=== PATIENT | female | born 1945 | race African-American/Black ===

== ENCOUNTER 2017-08-29 01:33 | Inpatient (IN) | payer MEDICARE, OTHER ==
[~2017-08-29] VITALS: Ht 182.9 cm; Wt 68.0 kg
[~2017-08-29 01:33] MED LIST: AMLO10TA4 PO; ASPI-1152 PO; ASPI-1169 PO; DONE10TA11 PO; GABA100C PO; HYDR-548 PO; LEVO500T75 PO; LISI-659 PO; LORA-258 PO; MEMA10TA PO; METO25TA20 GT; NIFE60TA2 PO; OLAN5TAB3 PO; OMEP20TA20 PO; ZOLP5TAB2 PO
--- NOTE | 2017-08-29 01:45 | NUR ---
TO BED 2 A 72 YO FEMALE PATIENT BB [id number] FROM [facility] "PMD REQUEST EVAL FOR CP X8 HOURS AGO." UPON ARRIVAL TO ER, PATIENT DENIES CP. NO SOB. VSS. NAD NOTED. SKIN WARM AND DRY. PLACED ON CARDIAC AND VS MONITORING. COMFORT MEASURES RENDERED.
[2017-08-29] MEDS ORDERED: ASPIRIN 325 MG TABLET ONE (01:54)
[2017-08-29] MEDS ORDERED: ASPIRIN 325 MG TABLET PO ONE (02:00)
--- NOTE | 2017-08-29 02:26 | NUR ---
XR AT BEDSIDE.
[2017-08-29 02:58] LABS: BASOPHILS % (AUTO) 0.1 % (0.0-2.0); EOSINOPHILS # (AUTO) 0.1 /CMM (0.0-0.7); EOSINOPHILS % (AUTO) 1.9 % (0.0-6.0); HEMATOCRIT 37 % (33-45); HEMOGLOBIN 12.1 g/dL (11.5-14.8); LYMPHOCYTES # (AUTO) 1.5 /CMM (0.8-4.8); MEAN CORPUSCULAR HEMOGLOBIN 31 PG (26.0-33.0); MEAN CORPUSCULAR HGB CONC 33 g/dl (31.0-36.0); MEAN CORPUSCULAR VOLUME 94 fL (82-100); MONOCYTES # (AUTO) 0.4 /CMM (0.1-1.30); MONOCYTES % (AUTO) 5.1 % (2.0-12.0); NEUTROPHILS # (AUTO) 5.4 /CMM (1.8-8.9); NEUTROPHILS % (AUTO) 72.9 % (43.0-81.0); PLATELET COUNT (AUTO) 160 /CMM (150-450); RDW COEFFICIENT OF VARIATION 14.1 (11.5-15.0); RED BLOOD CELL COUNT(AUTO) 3.92 MIL/uL (4.0-5.2); WHITE BLOOD COUNT (AUTO) 7.5 K/uL (4.3-11.0)
[2017-08-29 03:13] LABS: INR 0.96 (0.87-1.13)
[2017-08-29 03:16] LABS: TROPONIN I < 0.017 ng/mL (0.00-0.056)
[2017-08-29 03:25] LABS: B-TYPE NATRIURETIC PEPTIDE 1274 PG/ML (0-125); CALCIUM, SERUM 8.8 mg/dL (8.5-10.1); CARBON DIOXIDE 29 mmol/L (21-32); CHLORIDE 107 mmol/L (98-107); CREATININE 0.7 mg/dL (0.6-1.3); GLUCOSE 98 mg/dL (74-106); POTASSIUM 4.2 mmol/L (3.5-5.1); SODIUM SERUM 142 mmol/L (136-145); UREA NITROGEN, BLOOD 24 mg/dL (7-18)
--- NOTE | 2017-08-29 03:52 | NUR ---
tele [phone]
[2017-08-29] MEDS ORDERED: ONDANSETRON HCL/PF 4 MG/2 ML VIAL IVP PRN (04:00)
[2017-08-29] MEDS ORDERED: NITROGLYCERIN 0.4 MG/TAB BOTTLE SL PRN (04:00)
--- NOTE | 2017-08-29 04:05 | NUR ---
Report given to Mari NEWMAN for ayanna.
[2017-08-29] MEDS ORDERED: METOPROLOL TARTRATE 25 MG TABLET PO ONE (04:30)
--- NOTE | 2017-08-29 04:45 | NUR ---
Transferred patient to tele bed 313-2 via als protocol, no incident noted. vss.
--- NOTE | 2017-08-29 05:08 | NUR ---
RN NOTES ADMITTED A 72 YEAR OLD FEMALE FROM ER VIA STRETCHER WITH NO RESPIRATORY DISTRESS OR SHORTNESS OF BREATH. BREATHING EVEN AND UNLABORED. ON 2LPM O2 VIA NASAL CANNULA TOLERATING WELL. SKIN ASSESSMENT DONE. VITAL SIGNS CHECKED WITH ELEVATED BLOOD PRESSURE. LOPRESSOR GIVEN. NO COMPLAINT OF PAIN OR DISCOMFORT. KEPT CLEAN AND DRY.
[2017-08-29 05:14] VITALS: BP 188/98
--- NOTE | 2017-08-29 06:24 | NUR ---
RN CLOSING NOTES PATIENT SLEEPING COMFORTABLY IN BED. NO DISTRESS NOTED. NO COMPLAINT OF PAIN OR DISCOMFORT. NO CHANGE IN CONDITION. KEPT CLEAN AND DRY. WILL ENDORSE TO AM SHIFT FOR CONTINUITY OF CARE.
--- NOTE | 2017-08-29 07:25 | NUR ---
RN NOTES RECEIVED PATIENT RESTING COMFORTABLY IN BED, EASILY AROUSABLE DURING CARE, CONFUSED, ABLE TO MAKE NEEDS KNOWN. RESPIRATIONS EVEN AND UNLABORED. IN NO APPARENT PAIN OR DISCOMFORT AT THIS TIME. IV ACCESS TO PATENT AND INTACT, NO REDNESS OR INFILTRATION NOTED. SAFETY MEASURES IN PLACE, KEPT CLEAN DRY AND COMFORTABLE, CALL LIGHT WITHIN EASY REACH
[2017-08-29 08:00] VITALS: BP 184/103
[2017-08-29] MEDS: ASPIRIN 81 MG TAB.CHEW PO SCH (09:16)
[2017-08-29] MEDS: METOPROLOL TARTRATE 25 MG TABLET PO SCH ×2 (09:17→16:05)
[2017-08-29 09:23] VITALS: BP_SYST 168; BP_DIAS 168; BP_DIAS 89
[2017-08-29] MEDS ORDERED: INSU100V3 SQ (09:25)
[2017-08-29] MEDS ORDERED: NA P133E RC (09:25)
[2017-08-29] MEDS ORDERED: NIFE30TA89 PO (09:25)
[2017-08-29] MEDS ORDERED: OXYC-133 PO (09:25)
[2017-08-29] MEDS ORDERED: BISA10SU8 RC (09:25)
[2017-08-29] MEDS ORDERED: PREG100C PO (09:25)
[2017-08-29] MEDS ORDERED: MAGN400O6 PO (09:25)
[2017-08-29] MEDS ORDERED: ISOS30TA9 PO (09:25)
[2017-08-29] MEDS ORDERED: ACET-868 PO (09:25)
[2017-08-29] MEDS ORDERED: PROP60TA18 PO (09:25)
--- NOTE | 2017-08-29 11:42 | NUR ---
RN NOTES PATIENT REFUSED AM TROPONIN X2, DIGITAL MUSIC INSTRUCTOR NOW ABLE TO TAKE TROPONIN DRAW WILL CONTINUE TO MONITOR
[2017-08-29 12:00] VITALS: BP 165/99
[2017-08-29] MEDS ORDERED: MORPHINE SULFATE INJ 2 MG/ML DISP.SYRIN IV PRN (14:00)
[2017-08-29] MEDS ORDERED: hydrALAZINE HCL 25 MG TABLET PO PRN (14:00)
[2017-08-29] MEDS: HYDROMORPHONE INJ 0.5 MG/0.5 ML SYRINGE IV PRN (14:08)
[2017-08-29] MEDS ORDERED: SERT50TA PO (15:43)
[2017-08-29] MEDS ORDERED: DIAZ5TAB4 PO (15:47)
[2017-08-29 16:00] VITALS: BP 163/97
[2017-08-29] MEDS: HYDROCODONE/APAP 5/325MG 1 EACH TABLET PO PRN (16:05)
[2017-08-29] MEDS ORDERED: LORAZEPAM INJ 2 MG/ML VIAL IV PRN (16:30)
[2017-08-29] MEDS ORDERED: FUROSEMIDE 20 MG/2 ML VIAL IV ONE (16:30)
[2017-08-29] MEDS ORDERED: DIAZEPAM 5 MG TABLET PO PRN (16:30)
[2017-08-29] MEDS ORDERED: BISACODYL SUPP (10 MG) 10 MG/SUPP.RECT SUPP.RECT RC PRN (16:30)
[2017-08-29] MEDS ORDERED: PROPRANOLOL HCL 60 MG PO SCH (17:00)
[2017-08-29] MEDS: GABAPENTIN 300 MG CAPSULE PO SCH (18:21)
--- NOTE | 2017-08-29 19:15 | NUR ---
PRACTICE CONSULTANT NOTES RECEIVED PATIENT AND REPORT FROM PREVIOUS SHIFT.
[2017-08-29] MEDS: ALBUTEROL FS 2.5 MG/3 ML VIAL.NEB NEB SCH (19:30)
--- NOTE | 2017-08-29 19:30 | NUR ---
ONLINE RETAILER NOTES PATIENT REFUSING TELE MONITOR. OFFERED 3 TIMES EXPLAINED RISKS AND BENEFITS OF HAVING TELE MONITOR AND PATIENT STILL REFUSED. NO. CALL LIGHT WITHIN REACH. WILL DO FREQUENT MONITORING AND WILL OFFER TELE MONITOR AGAIN.
--- NOTE | 2017-08-29 19:48 | NUR ---
RN NOTES PATIENT RESTING COMFORTABLY IN BED, EASILY AROUSABLE DURING CARE, CONFUSED, ABLE TO MAKE NEEDS KNOWN. RESPIRATIONS EVEN AND UNLABORED. IN NO APPARENT PAIN OR DISCOMFORT AT THIS TIME. IV ACCESS TO PATENT AND INTACT, NO REDNESS OR INFILTRATION NOTED. SAFETY MEASURES IN PLACE, KEPT CLEAN DRY AND COMFORTABLE, CALL LIGHT WITHIN EASY REACH
[2017-08-29 20:00] VITALS: BP 159/91
--- NOTE | 2017-08-29 21:00 | NUR ---
RN NOTES PATIENT AGREED TO BE ON TELE BOX AFTER REATTEMPT OF EXPLAINATION OF RISKS AND BENEFIT. APPLIED TELEBOX
[2017-08-29] MEDS: ZOLPIDEM TARTRATE 5 MG TABLET PO PRN (21:27)
[2017-08-29] MEDS: PREGABALIN 100 MG CAPSULE PO SCH (21:28)
--- NOTE | 2017-08-29 23:45 | NUR ---
RN NOTES GAVE PATIENT REPORT AND PATIENT CARE TO TRENT MCINTOSH
[2017-08-30] VITALS (7 sets, daily range): BP systolic 128–184; BP diastolic 67–149
--- NOTE | 2017-08-30 | NUR ---
AUTO MECHANIC APPRENTICE NOTES RECEIVED PATIENT FROM [facility] IN STABLE CONDITION. PATIENT IS SLEEPING IN BED, EASY TO AROUSE. RESPIRATIONS EVEN AND UNLABORED. NO APPARENT PAIN OR DISCOMFORT NOTED AT THIS TIME. IV ACCESS TO PATENT AND INTACT, NO REDNESS OR INFILTRATION NOTED. BED IN LOW AND LOCKED POSITION, SIDE RAILSX2. CALL LIGHT WITHIN EASY REACH. WILL CONTINUE TO MONITOR.
[2017-08-30 03:47] LABS: BASOPHILS % (AUTO) 0.4 % (0.0-2.0); EOSINOPHILS # (AUTO) 0.1 /CMM (0.0-0.7); EOSINOPHILS % (AUTO) 1.6 % (0.0-6.0); HEMATOCRIT 38 % (33-45); HEMOGLOBIN 12.4 g/dL (11.5-14.8); LYMPHOCYTES # (AUTO) 1.7 /CMM (0.8-4.8); LYMPHOCYTES % (AUTO) 30.7 % (20.0-44.0); MEAN CORPUSCULAR HEMOGLOBIN 31 PG (26.0-33.0); MEAN CORPUSCULAR HGB CONC 33 g/dl (31.0-36.0); MEAN CORPUSCULAR VOLUME 92 fL (82-100); MONOCYTES # (AUTO) 0.7 /CMM (0.1-1.30); MONOCYTES % (AUTO) 12.3 % (2.0-12.0); PLATELET COUNT (AUTO) 121 /CMM (150-450); RDW COEFFICIENT OF VARIATION 14.3 (11.5-15.0); RED BLOOD CELL COUNT(AUTO) 4.07 MIL/uL (4.0-5.2); WHITE BLOOD COUNT (AUTO) 5.5 K/uL (4.3-11.0)
[2017-08-30 04:03] LABS: CALCIUM, SERUM 8.7 mg/dL (8.5-10.1); CARBON DIOXIDE 33 mmol/L (21-32); CHLORIDE 104 mmol/L (98-107); CREATININE 0.7 mg/dL (0.6-1.3); GLUCOSE 105 mg/dL (74-106); PHOSPHORUS 3.6 mg/dL (2.5-4.9); POTASSIUM 3.1 mmol/L (3.5-5.1); SODIUM SERUM 144 mmol/L (136-145); UREA NITROGEN, BLOOD 14 mg/dL (7-18)
[2017-08-30 04:04] LABS: CHOLESTEROL 126 mg/dL (<200); HDL CHOLESTEROL 56 mg/dL (40-60); LDL 66 mg/dL (0-99); TRIGLYCERIDES 52 mg/dL (30-150)
[2017-08-30 04:12] LABS: MAGNESIUM 1.2 mg/dL (1.8-2.4)
[2017-08-30] MEDS ORDERED: POTASSIUM CHLORIDE 20 MEQ TAB.PRT.SR PO ONE (04:30)
--- NOTE | 2017-08-30 04:30 | NUR ---
RN NOTES MG 1.[address] MICHAEL TO OBTAIN ORDER 4 G MG IV AND 40 MEQ K DUR.
[2017-08-30] MEDS: Magnesium 1GM/D5W 100ML PREMIX 100 ML IV SCH ×4 (04:55→11:33)
--- NOTE | 2017-08-30 07:30 | NUR ---
RN CLOSING NOTES PATIENT IS IN BED, ALERT AND ORIENTED X2. NO SOB NOTED. RESPIRATIONS EVEN AND UNLABORED. IV ACCESS ON LEFT AC PATENT AND INTACT, NO REDNESS OR INFILTRATION NOTED. ALL NEEDS ARE MET AND MEDICATIONS GIVEN PER MD ORDER.BED IN LOW AND LOCKED POSITION, SIDE RAILSX2. CALL LIGHT WITHIN EASY REACH. WILL ENDORSE TO RN DAY SHIFT FOR [employer].
--- NOTE | 2017-08-30 07:30 | NUR ---
PT RECEIVED RESTING COMFORTABLY IN BED. NO S/S OR C/O PAIN OR DISTRESS NOTED. SIDE RAILS UP X2, CALL LIGHT LEFT WITHIN REACH. WILL CONTINUE PLAN OF CARE.
[2017-08-30] MEDS: ALBUTEROL FS 2.5 MG/3 ML VIAL.NEB NEB SCH ×4 (07:51→20:12)
[2017-08-30] MEDS: ASPIRIN 81 MG TAB.CHEW PO SCH (09:04)
[2017-08-30] MEDS: SERTRALINE HCL 50 MG TABLET PO SCH (09:04)
[2017-08-30] MEDS: GABAPENTIN 300 MG CAPSULE PO SCH ×3 (09:04→16:37)
[2017-08-30] MEDS: HYDROCODONE/APAP 5/325MG 1 EACH TABLET PO PRN (09:05)
[2017-08-30] MEDS: NIFEdipine XL (30MG) 30 MG TAB PO SCH (09:05)
[2017-08-30] MEDS: METOPROLOL TARTRATE 25 MG TABLET PO SCH ×2 (09:06→16:37)
[2017-08-30] MEDS: LISINOPRIL (20MG) 20 MG TABLET PO SCH (09:06)
[2017-08-30] MEDS: LABETALOL HCL (100MG) 100 MG TABLET PO SCH ×2 (14:00→20:33)
[2017-08-30] MEDS ORDERED: LABETALOL HCL IV 100MG VIAL IV PRN (14:00)
--- NOTE | 2017-08-30 19:43 | NUR ---
CHANGE OF SHIFT REPORT PT RESTING COMFORTABLY IN BED. NO S/S OR C/O PAIN OR DISTRESS NOTED. SIDE RAILS UP X2, CALL LIGHT LEFT WITHIN REACH. PT KEPT CLEAN DRY, AND COMFORTABLE. NO SIGNIFICANT CHANGES SINCE PREVIOUS SHIFT. REPORT GIVEN TO ALFRED NEWMAN.
--- NOTE | 2017-08-30 20:00 | NUR ---
Tele/rn notes Received patient in bed, awake, alert, able to verbalize needs, require assistance with feeding, monitoring for pain and sleep. will monitor, oxygen at 2 liter nasal canula, respirations even and unlabored, iv site left hand patent. will continue to monitor.
[2017-08-30] MEDS: HYDROMORPHONE INJ 0.5 MG/0.5 ML SYRINGE IV PRN (20:34)
[2017-08-30] MEDS: PREGABALIN 100 MG CAPSULE PO SCH (21:03)
--- NOTE | 2017-08-30 22:18 | NUR ---
tele/rn notes patient unable to sleep. requesting for sleeping pill, prn med ambien 5mg po to give and monitor effectiveness.
[2017-08-30] MEDS: ZOLPIDEM TARTRATE 5 MG TABLET PO PRN (22:24)
[2017-08-31] VITALS: BP 116/72
[2017-08-31 04:00] VITALS: BP 120/73
--- NOTE | 2017-08-31 06:38 | NUR ---
TELE/RN CLOSING NOTES PATIENT IN BED, ABLE TO SLEEP DURING THE NIGHT, KEEP WARM, PROVIDED FLUIDS AND SNACKS, BED IN LOCK POSITION, CALL LIGHTS WITHIN REACH, RESPIRATIONS EVEN AND UNLABORES, MONITORING FOR PAIN , WILL ENDORSE TO AM RN FOR [employer].
[2017-08-31] MEDS: HYDROMORPHONE INJ 0.5 MG/0.5 ML SYRINGE IV PRN ×2 (07:16→16:54)
--- NOTE | 2017-08-31 07:16 | NUR ---
tele/rn notes patient reported pain, pain pain medication provided.will monitor efectiveness.
[2017-08-31] MEDS: ALBUTEROL FS 2.5 MG/3 ML VIAL.NEB NEB SCH ×4 (07:35→20:12)
--- NOTE | 2017-08-31 07:46 | NUR ---
WORLD HISTORY TEACHER NOTE: RECEIVED PATIENT IN BED, ASLEEP BUT EASILY AWAKEN WHEN CALLING HER NAME. ON O2 2L/MIN VIA NC SATURATING WELL 100%. NOT ON ANY FORM OF DISTRESS. DENIED PAIN. ON SHEET ROCK LAYER SR= 82. BED ALARM AND LOCKED ON AT ALL TIMES. ON CONTACT ISOLATION FOR MRSA NARES. (L) FA 22G NOTED PATENT AND INTACT. CALL LIGHT WITHIN REACH. NEEDS ANTICIPATED.
[2017-08-31 08:00] VITALS: BP 110/66
[2017-08-31 08:38] LABS: BASOPHILS % (AUTO) 0.4 % (0.0-2.0); EOSINOPHILS # (AUTO) 0.1 /CMM (0.0-0.7); EOSINOPHILS % (AUTO) 3.2 % (0.0-6.0); HEMATOCRIT 40 % (33-45); HEMOGLOBIN 13.2 g/dL (11.5-14.8); LYMPHOCYTES # (AUTO) 1.3 /CMM (0.8-4.8); LYMPHOCYTES % (AUTO) 30.2 % (20.0-44.0); MEAN CORPUSCULAR HEMOGLOBIN 31 PG (26.0-33.0); MEAN CORPUSCULAR HGB CONC 33 g/dl (31.0-36.0); MEAN CORPUSCULAR VOLUME 93 fL (82-100); MONOCYTES # (AUTO) 0.5 /CMM (0.1-1.30); MONOCYTES % (AUTO) 12.1 % (2.0-12.0); NEUTROPHILS # (AUTO) 2.4 /CMM (1.8-8.9); NEUTROPHILS % (AUTO) 54.1 % (43.0-81.0); PLATELET COUNT (AUTO) 155 /CMM (150-450); RDW COEFFICIENT OF VARIATION 14.4 (11.5-15.0); RED BLOOD CELL COUNT(AUTO) 4.28 MIL/uL (4.0-5.2); WHITE BLOOD COUNT (AUTO) 4.4 K/uL (4.3-11.0)
[2017-08-31 08:54] LABS: CARBON DIOXIDE 33 mmol/L (21-32); CHLORIDE 105 mmol/L (98-107); GLUCOSE 132 mg/dL (74-106); MAGNESIUM 2.2 mg/dL (1.8-2.4); PHOSPHORUS 4.9 mg/dL (2.5-4.9); POTASSIUM 4.1 mmol/L (3.5-5.1); SODIUM SERUM 143 mmol/L (136-145); UREA NITROGEN, BLOOD 22 mg/dL (7-18)
[2017-08-31] MEDS: LABETALOL HCL (100MG) 100 MG TABLET PO SCH ×2 (09:39→21:01)
[2017-08-31] MEDS: NIFEdipine XL (30MG) 30 MG TAB PO SCH (09:40)
[2017-08-31] MEDS: LISINOPRIL (20MG) 20 MG TABLET PO SCH (09:40)
[2017-08-31] MEDS: METOPROLOL TARTRATE 25 MG TABLET PO SCH ×2 (09:40→17:53)
[2017-08-31] MEDS: GABAPENTIN 300 MG CAPSULE PO SCH ×3 (09:40→16:55)
[2017-08-31] MEDS: SERTRALINE HCL 50 MG TABLET PO SCH (09:40)
[2017-08-31] MEDS: ASPIRIN 81 MG TAB.CHEW PO SCH (09:40)
[2017-08-31] MEDS: HYDROCODONE/APAP 10/325MG 1 EA TABLET PO PRN (10:27)
[2017-08-31 12:00] VITALS: BP 126/76
[2017-08-31] MEDS: MUPIROCIN OINT 2% 22 GM TUBE SCH ×2 (16:47→21:01)
[2017-08-31 20:00] VITALS: BP 124/76
[2017-08-31] MEDS: PREGABALIN 100 MG CAPSULE PO SCH (20:59)
[2017-08-31] MEDS: ZOLPIDEM TARTRATE 5 MG TABLET PO PRN (21:07)
[2017-09-01] MEDS: HYDROMORPHONE INJ 0.5 MG/0.5 ML SYRINGE IV PRN ×3 (02:04→18:24)
[2017-09-01 04:00] VITALS: BP_SYST 124; BP_SYST 132; BP_DIAS 70; BP_DIAS 76
[2017-09-01] MEDS: HYDROCODONE/APAP 10/325MG 1 EA TABLET PO PRN ×2 (04:23→23:07)
--- NOTE | 2017-09-01 06:45 | NUR ---
PT ALERT,ORIENTED, FORGETFUL, NO CHEST PAIN BUT COMPLAINS OF BACK, GIVEN DILAUDID AND NORCO. PT COMPLAINS THIS MORNING THAT SHE DIDN'T HAVE BM FOR 4 DAYS, PT GIVEN DULCOLAX SUPPOSITORY WITH GOOD RESULT, PT IS CONSTIPATED WITH STOOL HARD A "ROCK" PER GARTH. PT MADE AWARE THAT UNTIL SHE MAKE A GOOD BM PT WILL NOT HAVE ANY PAIN MED, PT FINALLY HAD BM AND NOW STARTED TO CALL FOR PAIN SHOT.WILL ATTEND ALL HER NEEDS ,CALL LIGHT AT REACHED.
[2017-09-01 06:50] VITALS: BP 135/72
[2017-09-01] MEDS: ALBUTEROL FS 2.5 MG/3 ML VIAL.NEB NEB SCH ×4 (07:49→19:28)
[2017-09-01] MEDS: ASPIRIN 81 MG TAB.CHEW PO SCH (08:47)
[2017-09-01] MEDS: METOPROLOL TARTRATE 25 MG TABLET PO SCH ×2 (08:47→17:48)
[2017-09-01] MEDS: GABAPENTIN 300 MG CAPSULE PO SCH ×3 (08:48→17:48)
[2017-09-01] MEDS: SERTRALINE HCL 50 MG TABLET PO SCH (08:48)
[2017-09-01] MEDS: LISINOPRIL (20MG) 20 MG TABLET PO SCH (08:48)
[2017-09-01] MEDS: LABETALOL HCL (100MG) 100 MG TABLET PO SCH ×2 (08:49→21:49)
[2017-09-01] MEDS: NIFEdipine XL (30MG) 30 MG TAB PO SCH (09:03)
[2017-09-01] MEDS: MUPIROCIN OINT 2% 22 GM TUBE SCH ×2 (09:04→21:49)
[2017-09-01] MEDS ORDERED: TRAMADOL HCL 50 MG TABLET PO PRN (11:00)
[2017-09-01] MEDS ORDERED: MORPHINE SULFATE INJ 4 MG/ML DISP.SYRIN IV PRN (11:00)
[2017-09-01] MEDS ORDERED: ACETAMINOPHEN 325 MG TABLET PO SCH (12:00)
[2017-09-01 12:30] VITALS: BP 122/69
[2017-09-01] MEDS ORDERED: CEFAZOLIN SODIUM 2 GM in IV SODIUM CHLORIDE 0.9% 50 ML IV SCH (13:00)
--- NOTE | 2017-09-01 16:15 | NUR ---
MS KIKA NOTE, HAVE RECEIVED INFORMED CONSENT FROM PATIENT RERGARDING MYOCARDIAL NUCLEAR STRESS TEST WITH LEXISCAN TO BE PERFORMED 09/02/17. PATIENT TO BE NPO AT MIDNIGHT AND NO CAFFEINE.
--- NOTE | 2017-09-01 18:52 | NUR ---
TELE MIMEOGRAPH OPERATOR CLOSING NOTE, PATIENT A0X4, VS STABLE, BED LOW POSITION, CALL LIGHT IN REACH, SIDE RAILS UPX2, NO S/S OF INFECTION OR DISTRESS. PATIENT CONTINUES TO ASK FOR PAIN 8/10 MEDICATION ROUTINELY FOR LOWER BACK PAIN. X-RAY DONE FOR LOWER BACK, MD TO FOLLOW UP TO R/O SPINAL COMPRESSION. NEW PERIPHERAL IV PLACED RFA #22G. PATIENT TO BE NPO AT MIDNIGHT FOR UT NUCLEAR STRESS TEST W/LEXISCAN AND NO CAFFEINE. WILL ENDORSE PATIENT TO MASTER CONTROL OPERATOR.
[2017-09-01 20:00] VITALS: BP 135/72
[2017-09-01] MEDS: PREGABALIN 100 MG CAPSULE PO SCH (21:48)
[2017-09-01] MEDS: ZOLPIDEM TARTRATE 5 MG TABLET PO PRN (23:08)
[2017-09-02] MEDS: HYDROMORPHONE INJ 0.5 MG/0.5 ML SYRINGE IV PRN ×3 (01:30→16:12)
[2017-09-02 04:00] VITALS: BP 138/79
[2017-09-02 04:40] VITALS: BP 135/72
--- NOTE | 2017-09-02 06:24 | NUR ---
PT KEPT NPO AFTER MIDNIGHT FOR STRESS TEST.CONTINUE TO HAVE BACK PAIN DILAUDID GIVEN 0130 AND FINALLY FALL ASLEEP. VSS,AFEBRILE.NO SIGNIFICANT CHANGES OVERNIGHT.
[2017-09-02] MEDS: ALBUTEROL FS 2.5 MG/3 ML VIAL.NEB NEB SCH ×3 (07:35→15:30)
[2017-09-02] MEDS ORDERED: REGADENOSON 0.4 MG/5 ML DISP.SYRIN IVP ONE (08:00)
[2017-09-02] MEDS: MUPIROCIN OINT 2% 22 GM TUBE SCH (09:48)
[2017-09-02] MEDS: GABAPENTIN 300 MG CAPSULE PO SCH ×3 (09:49→17:48)
[2017-09-02] MEDS: SERTRALINE HCL 50 MG TABLET PO SCH (09:49)
[2017-09-02] MEDS: ASPIRIN 81 MG TAB.CHEW PO SCH (09:49)
[2017-09-02] MEDS: METOPROLOL TARTRATE 25 MG TABLET PO SCH ×2 (09:50→17:48)
[2017-09-02] MEDS: LISINOPRIL (20MG) 20 MG TABLET PO SCH (09:50)
[2017-09-02] MEDS: NIFEdipine XL (30MG) 30 MG TAB PO SCH (09:50)
[2017-09-02] MEDS: LABETALOL HCL (100MG) 100 MG TABLET PO SCH (09:51)
[2017-09-02 12:00] VITALS: BP 138/98
--- NOTE | 2017-09-02 14:00 | NUR ---
MS KIKA NOTE, PROVIDED PATIENT WITH HOT PACKS X2 TO ALLEVIATE PATIENT LOWER BACK PAIN. PATIENT REPORT PAIN LEVEL AT 4/10. WILL CONTINUE TO MONITOR AND CONTINUE PAIN MANAGEMENT. PATIENT RELAXED AND CALM.
[2017-09-02 17:48] VITALS: BP 146/81
--- NOTE | 2017-09-02 18:57 | NUR ---
MS BOG WORKER DISCHARGE NOTE, PATIENT AOX3-4, COMPLAINS OF CHRONIC LOWER BACK PAIN OTHERWISE VS STABLE. DISCONNECTED IV AND GAVE REPORT TO EMT TRANSPORT TANIKA. TRANSPORTED TO [facility] SKILLED TRIED TO GIVE REPORT TO [facility] RN MORTGAGE SPECIALIST AND NO ONE WANTED TO TAKE REPORT. WILL FOLLOW UP WITH BOWLING TEACHER AND ENDORSE.
== END 2017-09-02 18:30 | DRG 206 ==
LOC: ER 01:33 → TELE1 04:19 → MEDSG1 08-31 12:10
PROVIDERS: ADMIT Internal Medicine; ATTEND Internal Medicine
DX: M94.0 Chondrocostal junction syndrome [Tietze] (principal); I27.20 Pulmonary hypertension, unspecified; D64.9 Anemia, unspecified; E83.42 Hypomagnesemia; E11.9 Type 2 diabetes mellitus without complications; E78.5 Hyperlipidemia, unspecified; E87.6 Hypokalemia; Z88.2 Allergy status to sulfonamides; Z79.82 Long term (current) use of aspirin; Z79.899 Other long term (current) drug therapy; G89.4 Chronic pain syndrome; I10 Essential (primary) hypertension; K21.9 Gastro-esophageal reflux disease without esophagitis; Z90.49 Acquired absence of other specified parts of digestive tract; Z79.4 Long term (current) use of insulin; Z98.1 Arthrodesis status; Z86.73 Personal history of transient ischemic attack (TIA), and cerebral infarction without residual deficits; Z98.890 Other specified postprocedural states; J40 Bronchitis, not specified as acute or chronic; I70.0 Atherosclerosis of aorta
CPT/HCPCS: 36415; 71045-TC; 71250-TC; 72100-TC; 80048-TC; 80061-TC; 83735-TC; 83880; 84100-TC; 84484-TC; 85025-TC; 85730-TC; 87081-TC; 93307-TC; 94799-TC; A4216; A4606; A9502; J0690; J1940; J2060; J2785; J3475; J7050; Z7610

== ENCOUNTER 2018-09-28 11:40 | Inpatient (IN) | payer MEDICARE, OTHER ==
[~2018-09-28] VITALS: Ht 179.1 cm; Wt 80.4 kg
[~2018-09-28 11:40] MED LIST changes: +ACET-868 PO; -AMLO10TA4 PO; -ASPI-1152 PO; -ASPI-1169 PO; +BISA10SU8 RC; +DIAZ5TAB4 PO; -DONE10TA11 PO; -HYDR-548 PO; +INSU100V3 SQ; +ISOS30TA9 PO; -LEVO500T75 PO; -LORA-258 PO; +MAGN400O6 PO; -MEMA10TA PO; -METO25TA20 GT; +NA P133E RC; +NIFE30TA89 PO; -NIFE60TA2 PO; -OLAN5TAB3 PO; -OMEP20TA20 PO; +OXYC-133 PO; +PREG100C PO; +PROP60TA18 PO; +SERT50TA PO
--- NOTE | 2018-09-28 11:40 | NUR ---
BIB RA 60 [facility]",LOW O2SAT @ 75 RA, HOOKED TO OXYGEN VIA NC AT 3LPM. TO ER BED 4, HOOKED TO MONITOR, CHANGED TO GOWN, AWAITING MD VENTURA
--- NOTE | 2018-09-28 11:49 | NUR ---
DR STONE AT BEDSIDE
[2018-09-28] MEDS ORDERED: ALBUTEROL FS 2.5 MG/3 ML VIAL.NEB NEB ONE (12:00)
[2018-09-28] MEDS ORDERED: methylPREDNISolone SOD SUCC 125 MG/2ML VIAL IV ONE (12:00)
[2018-09-28] MEDS ORDERED: IPRATROPIUM NEB FS 0.5 MG/2.5 ML AMPUL.NEB NEB ONE (12:00)
[2018-09-28] MEDS ORDERED: methylPREDNISolone SOD SUCC 125 MG/2ML VIAL ONE (12:13)
[2018-09-28] MEDS ORDERED: ALBUTEROL FS 2.5 MG/3 ML VIAL.NEB ONE (12:15)
[2018-09-28] MEDS ORDERED: IPRATROPIUM NEB FS 0.5 MG/2.5 ML AMPUL.NEB ONE (12:15)
[2018-09-28 12:19] LABS: BASOPHILS % (AUTO) 0.5 % (0.0-2.0); EOSINOPHILS % (AUTO) 1.9 % (0.0-6.0); HEMATOCRIT 37 % (33-45); LYMPHOCYTES # (AUTO) 1.4 /CMM (0.8-4.8); LYMPHOCYTES % (AUTO) 17.3 % (20.0-44.0); MEAN CORPUSCULAR HGB CONC 32 g/dl (31.0-36.0); MEAN CORPUSCULAR VOLUME 99 fL (82-100); NEUTROPHILS # (AUTO) 5.4 /CMM (1.8-8.9); NEUTROPHILS % (AUTO) 68.3 % (43.0-81.0); PLATELET COUNT (AUTO) 154 /CMM (150-450); RED BLOOD CELL COUNT(AUTO) 3.78 MIL/uL (4.0-5.2); WHITE BLOOD COUNT (AUTO) 7.9 K/uL (4.3-11.0)
[2018-09-28 12:25] LABS: CALCIUM, SERUM 8.5 mg/dL (8.5-10.1); CARBON DIOXIDE 28 mmol/L (21-32); CHLORIDE 98 mmol/L (98-107); CREATININE 1.3 mg/dL (0.6-1.3); GLUCOSE 157 mg/dL (74-106); SODIUM SERUM 130 mmol/L (136-145); UREA NITROGEN, BLOOD 18 mg/dL (7-18)
[2018-09-28 12:28] LABS: ABG BASE EXCESS 1.9 mmol/L; ABG OXYGEN SATURATION 91.5 % (92.0-98.5); ABG PCO2 50.1 mmHg (35.0-45.0); ABG PH 7.365 (7.350-7.450); ABG PO2 70.2 mmHg (75.0-100.0); AaDO2 70.3 mmHg; COHb 1.4 % (0.5-1.5); MetHb 0.3 % (0.0-1.5); O2Hb 89.9 % (94.0-97.0); SITE, ABG Left Radial; VENT MODE, BG Nasal Cannula
[2018-09-28 12:37] LABS: ALANINE AMINOTRANSFERASE 60 U/L (12-78); ALBUMIN 2.5 g/dL (3.4-5.0); ALKALINE PHOSPHATASE 101 U/L (46-116); ASPARTATE AMINOTRANSFERASE 69 U/L (15-37); B-TYPE NATRIURETIC PEPTIDE 998 PG/ML (0-125); BILIRUBIN,DIRECT 0.2 mg/dL (0.0-0.2); BILIRUBIN,TOTAL 0.4 mg/dL (0.2-1.0); TOTAL PROTEIN, SERUM 7.2 g/dL (6.4-8.2)
--- NOTE | 2018-09-28 12:40 | NUR ---
CALLED NURSING SUP. FOR TELE BED
--- NOTE | 2018-09-28 13:11 | NUR ---
URINE SAMPLE SENT TO LAB
[2018-09-28 13:14] LABS: APPEARANCE,URINE Slightly Cloudy (CLEAR); BILIRUBIN,URINE SMALL (NEGATIVE); BLOOD, URINE Negative Ery/uL (NEGATIVE); COLOR,URINE Dark (YELLOW); KETONES,URINE Negative (NEGATIVE); LEUKOCYTE ESTERASE ,URINE Negative (NEGATIVE); NITRITE, URINE Negative (NEGATIVE); PH,URINE 6.5 (5.0-8.0); PROTEIN,URINE >=300 mg/dl (NEGATIVE); UGLUCOSE Negative (NEGATIVE)
[2018-09-28 13:23] LABS: BACTERIA,URINE Many /HPF (None Seen)
--- NOTE | 2018-09-28 13:23 | NUR ---
[facility] PAGED, LAWYER [employer]
[2018-09-28 13:24] LABS: HYALINE CASTS, URINE Few /LPF (None Seen); SQUAMOUS EPITHELIAL CELL,UR Moderate /HPF (None Seen)
[2018-09-28 13:25] LABS: MUCUS,URINE Moderate /LPF (None Seen); RBC,URINE 0-2 /HPF (0-2); WBC,URINE 0-2 /HPF (0-3)
--- NOTE | 2018-09-28 13:36 | NUR ---
TELE 310-2
--- NOTE | 2018-09-28 13:54 | NUR ---
REPORT GIVEN TO KIKI NEWMAN OF TELE UNIT FOR [employer]
[2018-09-28] MEDS ORDERED: MAG HYDROX/AL HYDROX/SIMETH 30 ML UDC PO PRN (14:00)
[2018-09-28] MEDS: ENOXAPARIN SODIUM 30 MG/0.3 ML DISP.SYRIN SQ SCH (14:00)
[2018-09-28] MEDS ORDERED: ONDANSETRON HCL/PF 4 MG/2 ML VIAL IVP PRN (14:00)
[2018-09-28] MEDS ORDERED: Z GUARD REMEDY 2 OZ OINT TP PRN (14:00)
[2018-09-28] MEDS ORDERED: ACETAMINOPHEN 325 MG TABLET PO PRN (14:00)
[2018-09-28] MEDS ORDERED: MAGNESIUM HYDROXIDE 30 ML UDC PO PRN (14:00)
--- NOTE | 2018-09-28 14:30 | NUR ---
CABIN WORKER NOTES Received Patient from Emergency Dept. at 1430 on Tele, Telemonitor on SR-[id number]. No acute respiratory distress and breathing unlabored. Lung sounds are diminished bilateral lower lobes. Patient A/O x 2-3 with episodes of confusion. Patient bedbound but able to turn and reposition self in bed. VS stable. T-97.8, RR-20, HR-78, BP-130/79, O2 96% on 2LPM via NC. Patient using bedpan. Skin assessment done. Skin intact. IV access on RAC and intact. Dr. Víctor mccullough all new Patient and new medication. Call jones within reach. Will continue to monitor.
[2018-09-28] MEDS: HYDROCODONE/APAP 5/325MG 1 EACH TABLET PO PRN ×2 (15:19→20:22)
--- NOTE | 2018-09-28 15:19 | NUR ---
RN NOTES ADMINISTERED NARCO 5/325 MG PO PRN FOR LOWER BACK PAIN 03/04 PER PATIENT REQUEST. ENCOURAGED TO INCREASE FLUID INTAKE TOLERATED. CALL LIGHT WITHIN TO REACH, PATIENT TURN ANDF REPOSTION IN THE BED SELF, SAFETY PRECAUTION MAINTAINED ALL THE TIME.
--- NOTE | 2018-09-28 15:33 | NUR ---
RN NOTES PATIENT REFUSED LOVENOX TO BE ADMINISTERED, EXPLAINED IMPORTANT OF MEDICATION INTAKE, BUT PATIENT STILL REFUSED, CONTINUED MONITORING.
[2018-09-28 15:37] VITALS: BP 130/79
--- NOTE | 2018-09-28 15:42 | NUR ---
RN NOTES UA SPECIMEN COLLECTED.
[2018-09-28] MEDS: ALBUTEROL FS 2.5 MG/0.5 ML VIAL.NEB NEB SCH ×3 (16:13→23:09)
[2018-09-28] MEDS: IPRATROPIUM NEB FS 0.5 MG/2.5 ML AMPUL.NEB NEB SCH ×3 (16:14→23:09)
[2018-09-28 16:28] VITALS: BP 130/79
[2018-09-28] MEDS ORDERED: DEXTROSE 50%-WATER 50 ML DISP.SYRIN IV PRN (16:30)
[2018-09-28] MEDS ORDERED: LACT10SO PO (16:43)
[2018-09-28] MEDS ORDERED: TRAM50TA2 PO (16:43)
[2018-09-28] MEDS ORDERED: DICL100G16 TP (16:43)
[2018-09-28] MEDS ORDERED: POTA10CA43 PO (16:43)
[2018-09-28] MEDS ORDERED: PANT40TA4 PO (16:43)
[2018-09-28] MEDS ORDERED: BUDE10.22 IH (16:43)
[2018-09-28] MEDS: BLOOD SUGAR DIAGNOSTIC 1 EACH STRIP IN SCH ×2 (16:51→21:53)
[2018-09-28] MEDS ORDERED: TIZA4TAB4 PO (17:11)
[2018-09-28] MEDS ORDERED: TIOT18CA3 IH (17:11)
[2018-09-28] MEDS ORDERED: DOCU100C36 PO (17:11)
[2018-09-28] MEDS ORDERED: ASCO500T9 PO (17:11)
[2018-09-28] MEDS ORDERED: LIDO30AD10 TP (17:11)
[2018-09-28] MEDS ORDERED: ALBU2.5V38 IH (17:11)
[2018-09-28] MEDS ORDERED: ARIP5TAB10 PO (17:11)
[2018-09-28] MEDS ORDERED: CLON1PAT2 TD (17:11)
[2018-09-28] MEDS ORDERED: MULT-213 PO (17:11)
[2018-09-28] MEDS ORDERED: CETI5TAB6 PO (17:11)
[2018-09-28] MEDS ORDERED: MELA3TAB PO (17:11)
[2018-09-28] MEDS ORDERED: GABA600T12 PO (17:11)
[2018-09-28] MEDS ORDERED: OXYC-128 PO (17:11)
[2018-09-28] MEDS ORDERED: ONDA4TAB10 PO (17:11)
[2018-09-28] MEDS ORDERED: NICO-676 TD (17:11)
[2018-09-28] MEDS ORDERED: METO25TA20 PO (17:11)
[2018-09-28] MEDS ORDERED: CLON0.1T PO (17:11)
[2018-09-28] MEDS ORDERED: PROP60TA18 PO (17:11)
[2018-09-28] MEDS ORDERED: ASPI-1152 PO (17:11)
--- NOTE | 2018-09-28 18:30 | NUR ---
RN CLOSING NOTES Patient A/O x 2 with no acute distress. Patient ate 100% of dinner and tolerated well. BS-125 with no coverage given. Medication administered for pain effective. Will endorse on coming nurse for plan of care.
--- NOTE | 2018-09-28 19:30 | NUR ---
RECEIVED PATIENT IN BED AWAKE. AO X 2-3, ABLE TO MAKE NEEDS KNOWN. NO ACUTE DISTRESS NOTED. DENIES ANY PAIN AT THIS TIME. TELE READING SR WITH PAC AND PVC. IV SITE PATENT, INTACT; FLUSHED. SAFETY REMINDERS GIVEN. ON LOW BED WITH BILATERAL UPPER SIDE RAILS UP. BED ALARM SET. CALL BRISCOE WITHIN EASY REACH. WILL CONTINUE TO MONITOR.
[2018-09-28 20:00] VITALS: BP 131/74
[2018-09-28] MEDS: methylPREDNISolone SOD SUCC 40 MG/ML VIAL IV SCH (20:22)
[2018-09-28] MEDS: INSULIN REGULAR, HUMAN 100 UNIT/ML 3 ML VIAL SQ PRN (21:55)
[2018-09-28] MEDS: ZOLPIDEM TARTRATE 5 MG TABLET PO PRN (22:20)
--- NOTE | 2018-09-28 22:33 | NUR ---
SPUTUM COLLECTED PER NOTES FROM DR. JULIAN FOR SPUTUM CULTURE
[2018-09-29 01:00] VITALS: BP 140/87
[2018-09-29] MEDS: HYDROCODONE/APAP 5/325MG 1 EACH TABLET PO PRN ×4 (02:47→20:03)
[2018-09-29] MEDS: IPRATROPIUM NEB FS 0.5 MG/2.5 ML AMPUL.NEB NEB SCH ×6 (03:17→23:30)
[2018-09-29] MEDS: ALBUTEROL FS 2.5 MG/0.5 ML VIAL.NEB NEB SCH ×6 (03:17→23:30)
[2018-09-29 04:00] VITALS: BP 145/80
[2018-09-29] MEDS: methylPREDNISolone SOD SUCC 40 MG/ML VIAL IV SCH ×3 (05:39→20:03)
[2018-09-29 06:29] LABS: BASOPHILS % (AUTO) 0.2 % (0.0-2.0); HEMATOCRIT 38 % (33-45); HEMOGLOBIN 12.5 g/dL (11.5-14.8); LYMPHOCYTES # (AUTO) 0.9 /CMM (0.8-4.8); LYMPHOCYTES % (AUTO) 15.7 % (20.0-44.0); MEAN CORPUSCULAR HGB CONC 33 g/dl (31.0-36.0); MEAN CORPUSCULAR VOLUME 97 fL (82-100); MONOCYTES # (AUTO) 0.3 /CMM (0.1-1.30); NEUTROPHILS # (AUTO) 4.3 /CMM (1.8-8.9); NEUTROPHILS % (AUTO) 78.1 % (43.0-81.0); PLATELET COUNT (AUTO) 146 /CMM (150-450); RED BLOOD CELL COUNT(AUTO) 3.89 MIL/uL (4.0-5.2); WHITE BLOOD COUNT (AUTO) 5.5 K/uL (4.3-11.0)
--- NOTE | 2018-09-29 06:30 | NUR ---
PATIENT IN BED ASLEEP, EASILY AROUSABLE. RESPIRATIONS EVEN. NO SIGNS OF PAIN NOTED. DUE MEDS GIVEN WITH NO ASE NOTED. NEEDS ATTENDED. KEPT CLEAN, DRY, AND COMFORTABLE. SAFETY PRECAUTIONS AND COMFORT MEASURE IN PLACE. WILL GIVE REPORT TO DAY SHIFT FOR CONTINUITY OF CARE.
[2018-09-29 06:39] LABS: CHOLESTEROL 97 mg/dL (<200); HDL CHOLESTEROL 39 mg/dL (40-60); LDL 56 mg/dL (0-99); TRIGLYCERIDES 44 mg/dL (30-150)
[2018-09-29] MEDS: BLOOD SUGAR DIAGNOSTIC 1 EACH STRIP IN SCH ×4 (06:42→21:12)
[2018-09-29 06:44] LABS: ALANINE AMINOTRANSFERASE 56 U/L (12-78); ALBUMIN 2.4 g/dL (3.4-5.0); ALKALINE PHOSPHATASE 96 U/L (46-116); ASPARTATE AMINOTRANSFERASE 59 U/L (15-37); BILIRUBIN,DIRECT 0.1 mg/dL (0.0-0.2); BILIRUBIN,TOTAL 0.3 mg/dL (0.2-1.0); CALCIUM, SERUM 8.4 mg/dL (8.5-10.1); CARBON DIOXIDE 31 mmol/L (21-32); CHLORIDE 100 mmol/L (98-107); CREATININE 0.8 mg/dL (0.6-1.3); GLUCOSE 172 mg/dL (74-106); MAGNESIUM 1.9 mg/dL (1.8-2.4); PHOSPHORUS 3.9 mg/dL (2.5-4.9); POTASSIUM 4.6 mmol/L (3.5-5.1); SODIUM SERUM 137 mmol/L (136-145); TOTAL PROTEIN, SERUM 7.3 g/dL (6.4-8.2); UREA NITROGEN, BLOOD 17 mg/dL (7-18)
[2018-09-29] MEDS: INSULIN REGULAR, HUMAN 100 UNIT/ML 3 ML VIAL SQ PRN ×3 (06:46→21:12)
--- NOTE | 2018-09-29 07:45 | NUR ---
Tele/RN - Assessment Patient awake, A/O x 4, denies SOB, no apparent distress noted, stable on 2 lpm via NC, tele shows SR with PAC/PVC. Saline lock on the CHADD is patent, intact, with no signs of infiltration. Labs reviewed, results WNL. Skin is intact. Patient independent with bed mobility. Fall precautions maintained. Patient educated on plan of care. Will continue with current medical management.
[2018-09-29] MEDS: PANTOPRAZOLE 40 MG TABLET.DR PO SCH (07:49)
[2018-09-29 08:00] VITALS: BP 153/93
[2018-09-29] MEDS: ENOXAPARIN SODIUM 30 MG/0.3 ML DISP.SYRIN SQ SCH (08:05)
[2018-09-29] MEDS: NICOTINE PATCH (7MG) 7 MG PATCH.TD24 TD SCH (08:05)
[2018-09-29] MEDS ORDERED: FIXODENT 1 EA TUBE MM ONE (11:00)
[2018-09-29] MEDS ORDERED: GUAIFENESIN 300 MG/15 ML UDC PO PRN (13:00)
[2018-09-29] MEDS ORDERED: PANTOPRAZOLE 40 MG TABLET.DR PO SCH (13:30)
[2018-09-29] MEDS ORDERED: ACETAMINOPHEN 325 MG TABLET PO PRN (13:30)
[2018-09-29] MEDS ORDERED: oxyCODONE/APAP (5/325 MG) 1 UDTAB TABLET PO PRN (13:30)
[2018-09-29] MEDS ORDERED: TRAMADOL HCL 50 MG TABLET PO PRN (13:30)
[2018-09-29] MEDS ORDERED: HOME MED - VOLTAREN GEL TP SCH (13:30)
[2018-09-29] MEDS ORDERED: CLONIDINE HCL 0.1 MG TABLET PO PRN (13:30)
[2018-09-29] MEDS ORDERED: LACTULOSE 10 G/15 ML UDC (PYXIS) PO PRN (13:30)
[2018-09-29] MEDS ORDERED: DOCUSATE SODIUM 100 MG CAPSULE PO PRN (13:30)
[2018-09-29] MEDS: ARIPIPRAZOLE 5 MG TABLET PO SCH ×2 (13:30→21:02)
[2018-09-29] MEDS: LIDOCAINE 5% (PATCH) 1 EA PATCH TP SCH (14:48)
[2018-09-29] MEDS: ASCORBIC ACID 500 MG TABLET PO SCH (14:49)
[2018-09-29] MEDS: ASPIRIN EC 81 MG TABLET.DR PO SCH (14:49)
[2018-09-29] MEDS: NIFEdipine XL (30MG) 30 MG TAB PO SCH (14:56)
[2018-09-29 16:00] VITALS: BP 168/88
[2018-09-29] MEDS: TIZANIDINE HCL 4 MG TABLET PO SCH (18:03)
[2018-09-29] MEDS: GABAPENTIN 300 MG CAPSULE PO SCH (18:05)
[2018-09-29] MEDS: METOPROLOL TARTRATE 25 MG TABLET PO SCH (18:07)
[2018-09-29] MEDS: PROPRANOLOL LA 60 MG CAP.SA.24H PO SCH (18:08)
--- NOTE | 2018-09-29 18:49 | NUR ---
RN CLOSING NOTES Patient A/O x 3 with no acute distress. Patient refused Accucheck for dinner. All medications administered. Saline lock dry, clean and intact. On continuous O2 via NC. Will endorse to oncoming nurse for plan of care.
--- NOTE | 2018-09-29 19:22 | NUR ---
RN MS OPENING NOTES RECEIVED PATIENT IN BED AWAKE, ALERT AND ORIENTED X3, VERBALLY RESPONSIVE, ABLE TO MAKE NEEDS KNOWN. BREATHING EVEN AND UNLABORED. NO SOB NOTED. ON 2L OXYGEN VIA NC. WITH COMPLAINTS OF HEADACHE. REQUESTING FOR NORCO AT 1999. WILL GIVE PRN ORDERED. IV ON RIGHT UPPER ARM INTACT AND PATENT. SKIN DRY AND WARM TO TOUCH. AFEBRILE. ALL OTHER NEEDS ATTENDED TO. SAFETY MEASURES IN PLACE. CALL LIGHT WITHIN REACH. WILL CONTINUE TO MONITOR.
[2018-09-29 20:04] VITALS: BP 182/102
[2018-09-29] MEDS: ZOLPIDEM TARTRATE 5 MG TABLET PO PRN (21:03)
[2018-09-29 21:27] VITALS: BP 151/98
--- NOTE | 2018-09-29 21:56 | NUR ---
RN MS NOTES PATIENT STRONGLY REFUSED INSULIN DESPITE EXPLANATION OF RISKS AND BENEFITS. PER PATIENT SHE "DIDN'T TAKE INSULIN BEFORE, AND SHE DOES NOT WANT TO TAKE IT NOW". WILL CONTINUE TO MONITOR.
[2018-09-30] MEDS: ALBUTEROL FS 2.5 MG/0.5 ML VIAL.NEB NEB SCH ×4 (02:39→14:32)
[2018-09-30] MEDS: IPRATROPIUM NEB FS 0.5 MG/2.5 ML AMPUL.NEB NEB SCH ×4 (02:39→14:32)
[2018-09-30] MEDS: methylPREDNISolone SOD SUCC 40 MG/ML VIAL IV SCH (05:22)
[2018-09-30] MEDS: BLOOD SUGAR DIAGNOSTIC 1 EACH STRIP IN SCH ×2 (06:30→11:57)
[2018-09-30] MEDS: INSULIN REGULAR, HUMAN 100 UNIT/ML 3 ML VIAL SQ PRN (06:31)
--- NOTE | 2018-09-30 06:40 | NUR ---
RN MS CLOSING NOTES PATIENT RESTING IN BED. NO ACUTE CHANGES THROUGHOUT SHIFT. PATIENT NOTED WITH CONSTANT YELLING AND SCREAMING AND WITH EPISODES OF FORGETFULNESS. REORIENTED NEEDED. BREATHING EVEN AND UNLABORED. NO SOB NOTED. ON 2LPM OXYGEN VIA NC. PATIENT REFUSED BREATHING TREATMENTS TWICE THROUGHOUT SHIFT DUE TO NOT WANTING TO BE BOTHERED WHILE SLEEPING - O2SAT STABLE. WITH COMPLAINTS OF HEADACHE - GAVE TRAMADOL. SKIN DRY AND WARM TO TOUCH. IV INTACT AND PATENT. ALL OTHER NEEDS ATTENDED TO. KEPT CLEAN DRY AND COMFORTABLE. SAFETY MEASURES IN PLACE. CALL LIGHT WITHIN REACH. WILL ENDORSE TO ONCOMING NURSE FOR [employer].
--- NOTE | 2018-09-30 07:35 | NUR ---
MS RN OPENING NOTES RECEIVED PATIENT AWAKE IN BED IN NO ACUTE SIGNS OF DISTRESS. HOB ELEVATED. A/O X2-3. ABLE TO MAKE NEEDS KNOWN, DENIES PAIN OR ANY DISCOMFORTS AT THIS TIME. ON 2LPM OF OXYGEN VIA N/C, BREATHING EVEN AND UNLABORED. IV ACCESS ON RIGHT UPPER ARM INTACT AND PATENT. SKIN DRY AND WARM TO TOUCH. SAFETY MEASURES IN PLACE. BED IN LOW LOCKED POSITION WITH SR UP X2. CALL LIGHT WITHIN REACH. WILL CONTINUE TO MONITOR.
[2018-09-30] MEDS: PANTOPRAZOLE 40 MG TABLET.DR PO SCH (07:55)
[2018-09-30 08:00] VITALS: BP 154/94
[2018-09-30] MEDS: ENOXAPARIN SODIUM 30 MG/0.3 ML DISP.SYRIN SQ SCH (08:16)
[2018-09-30] MEDS: ASCORBIC ACID 500 MG TABLET PO SCH (08:17)
[2018-09-30] MEDS: NICOTINE PATCH (7MG) 7 MG PATCH.TD24 TD SCH (08:18)
[2018-09-30] MEDS: GABAPENTIN 300 MG CAPSULE PO SCH ×2 (08:18→12:33)
[2018-09-30] MEDS: METOPROLOL TARTRATE 25 MG TABLET PO SCH (08:18)
[2018-09-30] MEDS: TIZANIDINE HCL 4 MG TABLET PO SCH ×2 (08:19→12:33)
[2018-09-30] MEDS: ASPIRIN EC 81 MG TABLET.DR PO SCH (08:19)
[2018-09-30] MEDS: NIFEdipine XL (30MG) 30 MG TAB PO SCH (08:20)
[2018-09-30 08:22] VITALS: BP 154/94
[2018-09-30] MEDS: PROPRANOLOL LA 60 MG CAP.SA.24H PO SCH (08:22)
[2018-09-30] MEDS ORDERED: cetrizine 10 MG TABLET PO SCH (09:00)
[2018-09-30] MEDS ORDERED: POTASSIUM CHLORIDE 10 MEQ TABLET.SA PO SCH (09:00)
[2018-09-30] MEDS ORDERED: ISOSORBIDE DINITRATE (20MG) 20 MG TABLET PO SCH (09:00)
[2018-09-30] MEDS ORDERED: methylPREDNISolone SOD SUCC 40 MG/ML VIAL IV SCH (09:00)
[2018-09-30] MEDS ORDERED: LISINOPRIL (20MG) 20 MG TABLET PO SCH (09:00)
[2018-09-30] MEDS ORDERED: MULTIVITAMINS,THERAGRAN 1 UDTAB TABLET PO SCH (09:00)
[2018-09-30] MEDS: HYDROCODONE/APAP 5/325MG 1 EACH TABLET PO PRN (11:23)
--- NOTE | 2018-09-30 11:24 | NUR ---
RN NOTES/PAIN MANAGEMENT PATIENT NOTED GRIMACING AND COMPLAINING OF HEADACHE WITH SCALE OF 7/10. PRN NORCO 5/325 MG PO GIVEN AT 1123. WILL CONTINUE TO MONITOR AND REASSESS.
[2018-09-30] MEDS: LIDOCAINE 5% (PATCH) 1 EA PATCH TP SCH (12:33)
--- NOTE | 2018-09-30 13:39 | NUR ---
RN NOTES PATIENT FOR DISCHARGE THIS AFTERNOON. CONTACTED [facility]. SPOKE TO CHARLEY RN SNOUT PULLER AND GAVE REPORT.
--- NOTE | 2018-09-30 14:32 | NUR ---
DIFFUSION OPERATOR NOTES PATIENT DISCHARGED TO [facility] IN STABLE CONDITION. PATIENT ALERT AND ORIENTED X3-4. NO SIGNS AND SYMPTOMS OF DISTRESS. BELONGINGS CHECKED COUNTED AND FORMS SIGNED. VS CHECKED AND RECORDED. IV ACCESS REMOVED WITHOUT BLEEDING NOTED. DISCHARGE INSTRUCTIONS EXPLAINED TO PATIENT, AND VERBALIZED UNDERSTANDING. PATIENT TEACHING PROVIDED FOR SMOKING CESSATION, PATIENT VERBALIZED UNDERSTANDING. PATIENT LEFT UNIT AT 1420 VIA GURNEY ACCOMPANIED BY 2 EMT'S. CHARGE NURSE AWARE OF DISCHARGE.
[2018-10-03] MEDS ORDERED: CLONIDINE HCL 0.2MG/24H PTWK 1 EA PATCH TD SCH (09:00)
== END 2018-09-30 14:00 | DRG 191 ==
LOC: ER 11:40 → TELE 13:49 → MED 09-29 08:14
PROVIDERS: ADMIT Student in an Organized Health Care Education/Training Program; ATTEND Nurse Practitioner Acute Care
DX: J44.1 Chronic obstructive pulmonary disease with (acute) exacerbation (principal); E87.1 Hypo-osmolality and hyponatremia; E44.0 Moderate protein-calorie malnutrition; G93.40 Encephalopathy, unspecified; E83.42 Hypomagnesemia; G89.4 Chronic pain syndrome; E78.5 Hyperlipidemia, unspecified; E11.9 Type 2 diabetes mellitus without complications; F03.90 Unspecified dementia, unspecified severity, without behavioral disturbance, psychotic disturbance, mood disturbance, and anxiety; I10 Essential (primary) hypertension; I27.20 Pulmonary hypertension, unspecified; F20.9 Schizophrenia, unspecified; Z87.891 Personal history of nicotine dependence; Z86.73 Personal history of transient ischemic attack (TIA), and cerebral infarction without residual deficits; Z90.49 Acquired absence of other specified parts of digestive tract; K21.9 Gastro-esophageal reflux disease without esophagitis; Z88.2 Allergy status to sulfonamides; Z79.4 Long term (current) use of insulin; Z98.1 Arthrodesis status; J40 Bronchitis, not specified as acute or chronic; I34.0 Nonrheumatic mitral (valve) insufficiency; Z68.25 Body mass index [BMI] 25.0-25.9, adult
CPT/HCPCS: 36415; 36600; 71045-TC; 80048-TC; 80061-TC; 80076-TC; 81000-TC; 82803-TC; 82962-TC; 83735-TC; 83880; 84100-TC; 84484-TC; 85025-TC; 87070-TC; 87081-TC; 87086-TC; 94760-TC; 94799-TC; 97110-TC; 97530-TC; G0378; J1650; J1815; J2920; J2930

== ENCOUNTER 2019-04-02 21:39 | Inpatient (IN) | payer MEDICARE, OTHER ==
[~2019-04-02] VITALS: Ht 177.8 cm; Wt 89.4 kg
[~2019-04-02 21:39] MED LIST changes: +ALBU2.5V38 IH; +ARIP5TAB10 PO; +ASCO500T9 PO; +ASPI-1152 PO; +BISA10SU11 RC; -BISA10SU8 RC; +BUDE10.22 IH; +CETI5TAB6 PO; +CLON0.1T PO; +CLON1PAT2 TD; -DIAZ5TAB4 PO; +DICL100G16 TP; +DOCU100C36 PO; -GABA100C PO; +GABA600T12 PO; -INSU100V3 SQ; +LACT10SO PO; +LIDO30AD10 TP; +MELA3TAB PO; +METO25TA20 PO; +MULT-213 PO; +NICO-676 TD; +ONDA4TAB10 PO; +OXYC-128 PO; -OXYC-133 PO; +PANT40TA4 PO; +POTA10CA43 PO; -PREG100C PO; -SERT50TA PO; +TIOT18CA3 IH; +TIZA4TAB5 PO; +TRAM50TA2 PO; -ZOLP5TAB2 PO
[2019-04-02] MEDS ORDERED: ALBUTEROL FS 2.5 MG/3 ML VIAL.NEB ONE (22:25)
[2019-04-02] MEDS ORDERED: IPRATROPIUM NEB FS 0.5 MG/2.5 ML AMPUL.NEB ONE (22:25)
[2019-04-02] MEDS ORDERED: IPRATROPIUM NEB FS 0.5 MG/2.5 ML AMPUL.NEB NEB ONE (22:30)
[2019-04-02] MEDS ORDERED: methylPREDNISolone SOD SUCC 125 MG/2ML VIAL IV ONE (22:30)
[2019-04-02] MEDS ORDERED: ALBUTEROL FS 2.5 MG/3 ML VIAL.NEB NEB ONE (22:30)
[2019-04-02 22:38] LABS: ABG BASE EXCESS 0.9 mmol/L; ABG OXYGEN SATURATION 94.3 % (92.0-98.5); ABG PH 7.353 (7.350-7.450); ABG PO2 79.5 mmHg (75.0-100.0); AaDO2 90.2 mmHg; COHb 1.4 % (0.5-1.5); MetHb 0.4 % (0.0-1.5); O2Hb 92.6 % (94.0-97.0); SITE, ABG Left Radial; VENT MODE, BG Nasal Cannula
[2019-04-02] MEDS ORDERED: methylPREDNISolone SOD SUCC 125 MG/2ML VIAL ONE (22:59)
[2019-04-02 23:13] LABS: BASOPHILS % (AUTO) 0.4 % (0.0-2.0); EOSINOPHILS % (AUTO) 2.4 % (0.0-6.0); HEMATOCRIT 38 % (33-45); HEMOGLOBIN 12.6 g/dL (11.5-14.8); LYMPHOCYTES # (AUTO) 1.9 /CMM (0.8-4.8); LYMPHOCYTES % (AUTO) 36.2 % (20.0-44.0); MEAN CORPUSCULAR HGB CONC 33 g/dl (31.0-36.0); MEAN CORPUSCULAR VOLUME 101 fL (82-100); MONOCYTES # (AUTO) 0.5 /CMM (0.1-1.30); MONOCYTES % (AUTO) 8.8 % (2.0-12.0); NEUTROPHILS # (AUTO) 2.7 /CMM (1.8-8.9); NEUTROPHILS % (AUTO) 52.2 % (43.0-81.0); PLATELET COUNT (AUTO) 142 /CMM (150-450); RED BLOOD CELL COUNT(AUTO) 3.77 MIL/uL (4.0-5.2); WHITE BLOOD COUNT (AUTO) 5.2 K/uL (4.3-11.0)
[2019-04-02 23:17] LABS: CALCIUM, SERUM 8.7 mg/dL (8.5-10.1); CARBON DIOXIDE 30 mmol/L (21-32); CHLORIDE 100 mmol/L (98-107); CREATININE 0.7 mg/dL (0.6-1.3); GLUCOSE 95 mg/dL (74-106); POTASSIUM 4.3 mmol/L (3.5-5.1); SODIUM SERUM 135 mmol/L (136-145); UREA NITROGEN, BLOOD 17 mg/dL (7-18)
[2019-04-02 23:30] LABS: ALANINE AMINOTRANSFERASE 52 U/L (12-78); ALBUMIN 2.9 g/dL (3.4-5.0); ALKALINE PHOSPHATASE 110 U/L (46-116); ASPARTATE AMINOTRANSFERASE 52 U/L (15-37); B-TYPE NATRIURETIC PEPTIDE 554 PG/ML (0-125); BILIRUBIN,DIRECT 0.2 mg/dL (0.0-0.2); BILIRUBIN,TOTAL 0.4 mg/dL (0.2-1.0)
[2019-04-02] MEDS ORDERED: TRAMADOL HCL 50 MG TABLET ONE (23:55)
[2019-04-03 00:15] VITALS: BP 159/101
[2019-04-03] MEDS ORDERED: Z GUARD REMEDY 2 OZ OINT TP PRN (00:30)
[2019-04-03] MEDS ORDERED: MAGNESIUM HYDROXIDE 30 ML UDC PO PRN (00:30)
[2019-04-03] MEDS ORDERED: TRAMADOL HCL 50 MG TABLET PO ONE (00:30)
[2019-04-03] MEDS ORDERED: AZITHROMYCIN 250 MG TABLET PO SCH (00:30)
[2019-04-03] MEDS ORDERED: MAG HYDROX/AL HYDROX/SIMETH 30 ML UDC PO PRN (00:30)
[2019-04-03] MEDS ORDERED: ACETAMINOPHEN 325 MG TABLET PO PRN (00:30)
[2019-04-03] MEDS ORDERED: ONDANSETRON HCL/PF 4 MG/2 ML VIAL IVP PRN (00:30)
[2019-04-03] MEDS ORDERED: BISACODYL SUPP (10 MG) 10 MG/SUPP.RECT SUPP.RECT RC PRN (01:00)
[2019-04-03] MEDS ORDERED: CLONIDINE HCL 0.1 MG TABLET PO PRN (01:00)
[2019-04-03] MEDS: ALBUTEROL FS 2.5 MG/0.5 ML VIAL.NEB NEB SCH ×4 (02:15→19:38)
[2019-04-03] MEDS: IPRATROPIUM NEB FS 0.5 MG/2.5 ML AMPUL.NEB NEB SCH ×4 (02:15→19:38)
[2019-04-03] MEDS ORDERED: PANTOPRAZOLE 40 MG TABLET.DR PO SCH (07:30)
[2019-04-03] MEDS: PANTOPRAZOLE 40 MG TABLET.DR PO SCH (07:51)
[2019-04-03] MEDS: HYDROCODONE/APAP 5/325MG 1 EACH TABLET PO PRN ×2 (07:52→19:16)
[2019-04-03 08:00] VITALS: BP 154/92
[2019-04-03] MEDS: NICOTINE PATCH (14MG) 14 MG PATCH.TD24 TD SCH (08:13)
[2019-04-03] MEDS: LIDOCAINE 5% (PATCH) 1 EA PATCH TP SCH (08:13)
[2019-04-03] MEDS: ASCORBIC ACID 500 MG TABLET PO SCH (08:14)
[2019-04-03] MEDS: methylPREDNISolone SOD SUCC 40 MG/ML VIAL IV SCH ×2 (08:14→16:34)
[2019-04-03] MEDS: METOPROLOL TARTRATE 25 MG TABLET PO SCH ×2 (08:15→16:47)
[2019-04-03] MEDS: cetrizine 10 MG TABLET PO SCH (08:15)
[2019-04-03] MEDS: LISINOPRIL (20MG) 20 MG TABLET PO SCH (08:15)
[2019-04-03] MEDS: GABAPENTIN 300 MG CAPSULE PO SCH ×3 (08:15→16:35)
[2019-04-03] MEDS: NIFEdipine XL (30MG) 30 MG TAB PO SCH (08:16)
[2019-04-03] MEDS: TIZANIDINE HCL 4 MG TABLET PO SCH ×3 (08:16→16:35)
[2019-04-03] MEDS: ASPIRIN EC 81 MG TABLET.DR PO SCH (08:16)
[2019-04-03] MEDS: ISOSORBIDE DINITRATE (10MG) 10 MG TABLET PO SCH (08:24)
[2019-04-03] MEDS ORDERED: CLONIDINE HCL 0.2MG/24H PTWK 1 EA PATCH TD SCH (09:00)
[2019-04-03] MEDS ORDERED: HOME MED MISCELLANEOUS TP SCH (09:00)
[2019-04-03] MEDS ORDERED: TIOTROPIUM BROMIDE 6 CAP/BOX CAP.W.DEV IH SCH (09:00)
[2019-04-03] MEDS: PROPRANOLOL HCL 40 MG TABLET PO SCH ×2 (09:02→16:47)
[2019-04-03] MEDS: DOCUSATE SODIUM 100 MG CAPSULE PO PRN (15:10)
[2019-04-03] MEDS ORDERED: FIXODENT 1 EA TUBE MM ONE (15:30)
[2019-04-03 16:00] VITALS: BP 124/75
[2019-04-03] MEDS: GUAIFENESIN/D-METHORPHAN HB 5 ML UDC PO PRN (21:29)
[2019-04-03] MEDS: ARIPIPRAZOLE 5 MG TABLET PO SCH (21:29)
[2019-04-03] MEDS ORDERED: Medication Not On Formulary EA (Melatonin 3 MG) PO SCH (22:00)
[2019-04-03] MEDS: TRAMADOL HCL 50 MG TABLET PO PRN (23:00)
[2019-04-04] MEDS: ALBUTEROL FS 2.5 MG/0.5 ML VIAL.NEB NEB SCH ×5 (01:21→19:12)
[2019-04-04] MEDS: IPRATROPIUM NEB FS 0.5 MG/2.5 ML AMPUL.NEB NEB SCH ×5 (01:21→19:12)
[2019-04-04 04:00] VITALS: BP 134/64
[2019-04-04] MEDS: PANTOPRAZOLE 40 MG TABLET.DR PO SCH (07:26)
[2019-04-04] MEDS: HYDROCODONE/APAP 5/325MG 1 EACH TABLET PO PRN ×2 (07:26→21:13)
[2019-04-04 08:00] VITALS: BP 151/69
[2019-04-04] MEDS: GABAPENTIN 300 MG CAPSULE PO SCH ×3 (08:13→16:03)
[2019-04-04] MEDS: ASCORBIC ACID 500 MG TABLET PO SCH (08:13)
[2019-04-04] MEDS: LIDOCAINE 5% (PATCH) 1 EA PATCH TP SCH (08:13)
[2019-04-04] MEDS: NICOTINE PATCH (14MG) 14 MG PATCH.TD24 TD SCH (08:13)
[2019-04-04] MEDS: ASPIRIN EC 81 MG TABLET.DR PO SCH (08:14)
[2019-04-04] MEDS: ISOSORBIDE DINITRATE (10MG) 10 MG TABLET PO SCH (08:14)
[2019-04-04] MEDS: PROPRANOLOL HCL 40 MG TABLET PO SCH ×2 (08:14→16:09)
[2019-04-04] MEDS: METOPROLOL TARTRATE 25 MG TABLET PO SCH ×2 (08:14→16:10)
[2019-04-04] MEDS: methylPREDNISolone SOD SUCC 40 MG/ML VIAL IV SCH ×2 (08:15→16:03)
[2019-04-04] MEDS: LISINOPRIL (20MG) 20 MG TABLET PO SCH (08:15)
[2019-04-04] MEDS: NIFEdipine XL (30MG) 30 MG TAB PO SCH (08:15)
[2019-04-04] MEDS: TIZANIDINE HCL 4 MG TABLET PO SCH ×3 (08:15→16:03)
[2019-04-04] MEDS: cetrizine 10 MG TABLET PO SCH (08:15)
[2019-04-04 10:13] LABS: CALCIUM, SERUM 8.1 mg/dL (8.5-10.1); CREATININE 0.8 mg/dL (0.6-1.3); MAGNESIUM 1.5 mg/dL (1.8-2.4); PHOSPHORUS 3.1 mg/dL (2.5-4.9); POTASSIUM 4.1 mmol/L (3.5-5.1)
[2019-04-04 10:28] LABS: THYROID STIMULATING HORMONE 0.706 uIU/mL (0.358-3.74)
[2019-04-04] MEDS: TRAMADOL HCL 50 MG TABLET PO PRN (10:53)
[2019-04-04 10:54] LABS: BASOPHILS # (AUTO) 0.1 /CMM (0.0-0.2); BASOPHILS % (AUTO) 0.9 % (0.0-2.0); EOSINOPHILS % (AUTO) 0.1 % (0.0-6.0); HEMATOCRIT 35 % (33-45); HEMOGLOBIN 11.7 g/dL (11.5-14.8); LYMPHOCYTES # (AUTO) 0.9 /CMM (0.8-4.8); MEAN CORPUSCULAR HGB CONC 33 g/dl (31.0-36.0); MEAN CORPUSCULAR VOLUME 100 fL (82-100); MONOCYTES # (AUTO) 0.3 /CMM (0.1-1.30); MONOCYTES % (AUTO) 5.3 % (2.0-12.0); NEUTROPHILS # (AUTO) 4.8 /CMM (1.8-8.9); NEUTROPHILS % (AUTO) 78.7 % (43.0-81.0); PLATELET COUNT (AUTO) 139 /CMM (150-450); RED BLOOD CELL COUNT(AUTO) 3.51 MIL/uL (4.0-5.2); WHITE BLOOD COUNT (AUTO) 6.1 K/uL (4.3-11.0)
[2019-04-04] MEDS: DOCUSATE SODIUM 100 MG CAPSULE PO PRN (12:23)
[2019-04-04] MEDS: GUAIFENESIN/D-METHORPHAN HB 5 ML UDC PO PRN (14:10)
[2019-04-04] MEDS: Magnesium 1GM/D5W 100ML PREMIX 100 ML IV SCH ×2 (15:07→16:02)
[2019-04-04 16:00] VITALS: BP 127/70
[2019-04-04 20:00] VITALS: BP 138/76
[2019-04-04] MEDS: ARIPIPRAZOLE 5 MG TABLET PO SCH (21:13)
[2019-04-05] MEDS: IPRATROPIUM NEB FS 0.5 MG/2.5 ML AMPUL.NEB NEB SCH ×7 (00:57→23:14)
[2019-04-05] MEDS: ALBUTEROL FS 2.5 MG/0.5 ML VIAL.NEB NEB SCH ×7 (00:57→23:14)
[2019-04-05] MEDS: HYDROCODONE/APAP 5/325MG 1 EACH TABLET PO PRN ×2 (01:22→14:52)
[2019-04-05 04:00] VITALS: BP 142/76
[2019-04-05] MEDS: GUAIFENESIN/D-METHORPHAN HB 5 ML UDC PO PRN (04:37)
[2019-04-05 08:00] VITALS: BP 166/87
[2019-04-05 08:17] LABS: CALCIUM, SERUM 8.2 mg/dL (8.5-10.1); CREATININE 0.7 mg/dL (0.6-1.3); MAGNESIUM 2.1 mg/dL (1.8-2.4); POTASSIUM 4.7 mmol/L (3.5-5.1)
[2019-04-05] MEDS: PANTOPRAZOLE 40 MG TABLET.DR PO SCH (08:28)
[2019-04-05] MEDS: methylPREDNISolone SOD SUCC 40 MG/ML VIAL IV SCH ×2 (09:01→16:30)
[2019-04-05] MEDS: NICOTINE PATCH (14MG) 14 MG PATCH.TD24 TD SCH (09:03)
[2019-04-05] MEDS: ASCORBIC ACID 500 MG TABLET PO SCH (09:28)
[2019-04-05] MEDS: LISINOPRIL (20MG) 20 MG TABLET PO SCH (09:29)
[2019-04-05] MEDS: ISOSORBIDE DINITRATE (10MG) 10 MG TABLET PO SCH (09:29)
[2019-04-05] MEDS: TIZANIDINE HCL 4 MG TABLET PO SCH ×3 (09:29→16:29)
[2019-04-05] MEDS: GABAPENTIN 300 MG CAPSULE PO SCH ×3 (09:29→16:29)
[2019-04-05] MEDS: NIFEdipine XL (30MG) 30 MG TAB PO SCH (09:30)
[2019-04-05] MEDS: METOPROLOL TARTRATE 25 MG TABLET PO SCH ×2 (09:30→16:28)
[2019-04-05] MEDS: cetrizine 10 MG TABLET PO SCH (09:30)
[2019-04-05] MEDS: LIDOCAINE 5% (PATCH) 1 EA PATCH TP SCH (09:31)
[2019-04-05] MEDS: ASPIRIN EC 81 MG TABLET.DR PO SCH (09:31)
[2019-04-05] MEDS: PROPRANOLOL HCL 40 MG TABLET PO SCH ×2 (09:31→16:29)
[2019-04-05 11:52] LABS: BASOPHILS % (AUTO) 0.3 % (0.0-2.0); EOSINOPHILS % (AUTO) 0.1 % (0.0-6.0); HEMATOCRIT 38 % (33-45); HEMOGLOBIN 12.1 g/dL (11.5-14.8); LYMPHOCYTES # (AUTO) 1.6 /CMM (0.8-4.8); MEAN CORPUSCULAR HGB CONC 32 g/dl (31.0-36.0); MEAN CORPUSCULAR VOLUME 103 fL (82-100); MONOCYTES # (AUTO) 0.6 /CMM (0.1-1.30); NEUTROPHILS # (AUTO) 4.8 /CMM (1.8-8.9); NEUTROPHILS % (AUTO) 67.6 % (43.0-81.0); PLATELET COUNT (AUTO) 136 /CMM (150-450); RED BLOOD CELL COUNT(AUTO) 3.66 MIL/uL (4.0-5.2); WHITE BLOOD COUNT (AUTO) 7.2 K/uL (4.3-11.0)
[2019-04-05 16:00] VITALS: BP 159/93
[2019-04-05 20:00] VITALS: BP 140/80
[2019-04-05] MEDS: ARIPIPRAZOLE 5 MG TABLET PO SCH (20:39)
[2019-04-05] MEDS ORDERED: TEMAZEPAM 15 MG CAPSULE PO PRN (22:00)
[2019-04-06] MEDS: IPRATROPIUM NEB FS 0.5 MG/2.5 ML AMPUL.NEB NEB SCH ×5 (02:45→15:34)
[2019-04-06] MEDS: ALBUTEROL FS 2.5 MG/0.5 ML VIAL.NEB NEB SCH ×5 (02:45→15:34)
[2019-04-06 04:00] VITALS: BP 162/89
[2019-04-06] MEDS: HYDROCODONE/APAP 5/325MG 1 EACH TABLET PO PRN ×2 (04:23→10:20)
[2019-04-06 08:00] VITALS: BP 187/85
[2019-04-06] MEDS: NICOTINE PATCH (14MG) 14 MG PATCH.TD24 TD SCH (08:13)
[2019-04-06] MEDS: LIDOCAINE 5% (PATCH) 1 EA PATCH TP SCH (08:13)
[2019-04-06] MEDS: methylPREDNISolone SOD SUCC 40 MG/ML VIAL IV SCH ×2 (08:13→17:17)
[2019-04-06] MEDS: ASPIRIN EC 81 MG TABLET.DR PO SCH (08:13)
[2019-04-06] MEDS: cetrizine 10 MG TABLET PO SCH (08:13)
[2019-04-06] MEDS: PANTOPRAZOLE 40 MG TABLET.DR PO SCH (08:14)
[2019-04-06] MEDS: NIFEdipine XL (30MG) 30 MG TAB PO SCH (08:14)
[2019-04-06] MEDS: GABAPENTIN 300 MG CAPSULE PO SCH ×3 (08:15→17:19)
[2019-04-06] MEDS: METOPROLOL TARTRATE 25 MG TABLET PO SCH ×2 (08:15→17:19)
[2019-04-06] MEDS: ASCORBIC ACID 500 MG TABLET PO SCH (08:15)
[2019-04-06] MEDS: LISINOPRIL (20MG) 20 MG TABLET PO SCH (08:16)
[2019-04-06] MEDS: TIZANIDINE HCL 4 MG TABLET PO SCH ×3 (08:17→17:19)
[2019-04-06] MEDS: PROPRANOLOL HCL 40 MG TABLET PO SCH ×2 (08:17→17:18)
[2019-04-06] MEDS: ISOSORBIDE DINITRATE (10MG) 10 MG TABLET PO SCH (08:19)
[2019-04-06] MEDS: TRAMADOL HCL 50 MG TABLET PO PRN (08:37)
[2019-04-06 10:52] LABS: CALCIUM, SERUM 8.5 mg/dL (8.5-10.1); CREATININE 0.8 mg/dL (0.6-1.3); POTASSIUM 4.1 mmol/L (3.5-5.1)
[2019-04-06] MEDS: DOCUSATE SODIUM 100 MG CAPSULE PO PRN (11:55)
[2019-04-06] MEDS ORDERED: ALBU2.5V13 NEB (12:55)
[2019-04-06] MEDS ORDERED: PRED20TA PO (12:55)
[2019-04-06] MEDS ORDERED: IPRA0.2S9 NEB (12:55)
[2019-04-06 17:19] VITALS: BP 131/74
== END 2019-04-06 17:20 | DRG 191 ==
LOC: ER 21:41 → TELE1 23:39 → MEDSG1 04-03 11:35
PROVIDERS: ADMIT Registered Nurse; ATTEND Family Medicine
DX: J44.1 Chronic obstructive pulmonary disease with (acute) exacerbation (principal); I50.32 Chronic diastolic (congestive) heart failure; Z68.28 Body mass index [BMI] 28.0-28.9, adult; E66.9 Obesity, unspecified; E11.9 Type 2 diabetes mellitus without complications; E78.5 Hyperlipidemia, unspecified; K21.9 Gastro-esophageal reflux disease without esophagitis; I11.0 Hypertensive heart disease with heart failure; F03.90 Unspecified dementia, unspecified severity, without behavioral disturbance, psychotic disturbance, mood disturbance, and anxiety; Z88.2 Allergy status to sulfonamides; Z79.82 Long term (current) use of aspirin; Z79.899 Other long term (current) drug therapy; Z79.51 Long term (current) use of inhaled steroids; D64.9 Anemia, unspecified; F17.200 Nicotine dependence, unspecified, uncomplicated; G89.4 Chronic pain syndrome; I70.0 Atherosclerosis of aorta; M19.90 Unspecified osteoarthritis, unspecified site; Z86.73 Personal history of transient ischemic attack (TIA), and cerebral infarction without residual deficits
CPT/HCPCS: 36415; 36600; 71045-TC; 80048-TC; 80061-TC; 80076-TC; 83735-TC; 83880; 84100-TC; 84443-TC; 84484-TC; 85025-TC; 87070-TC; 87081-TC; 93307-TC; 94799-TC; 97116-TC; 97530-TC; G0378; J2920; J2930; J3475; J7030

== ENCOUNTER 2019-04-30 22:54 | Emergency (ER) | payer MEDICARE, OTHER ==
[~2019-04-30] VITALS: Ht 179.1 cm; Wt 81.6 kg
[~2019-04-30 22:54] MED LIST changes: +ALBU2.5V13 NEB; +IPRA0.2S9 NEB; -MELA3TAB PO; +MELA3TAB63 PO; +PRED20TA PO
--- NOTE | 2019-04-30 23:00 | NUR ---
ANDRE C/O: SOB AFTER SMOKING, GIVEN A BREATHING TX ON ROUTE, SATTING 95 ON ROOM AIR ON ARRIVAL, TO ER BED 2 RESTING COMFORTABLY NO SOB NOTED.
[2019-04-30 23:57] LABS: BASOPHILS # (AUTO) 0.1 /CMM (0.0-0.2); BASOPHILS % (AUTO) 1.2 % (0.0-2.0); EOSINOPHILS % (AUTO) 0.5 % (0.0-6.0); HEMATOCRIT 43 % (33-45); HEMOGLOBIN 14.2 g/dL (11.5-14.8); LYMPHOCYTES # (AUTO) 2.4 /CMM (0.8-4.8); LYMPHOCYTES % (AUTO) 36.2 % (20.0-44.0); MEAN CORPUSCULAR HGB CONC 33 g/dl (31.0-36.0); MEAN CORPUSCULAR VOLUME 101 fL (82-100); MONOCYTES # (AUTO) 0.7 /CMM (0.1-1.30); MONOCYTES % (AUTO) 11.3 % (2.0-12.0); NEUTROPHILS # (AUTO) 3.4 /CMM (1.8-8.9); NEUTROPHILS % (AUTO) 50.8 % (43.0-81.0); PLATELET COUNT (AUTO) 165 /CMM (150-450); RED BLOOD CELL COUNT(AUTO) 4.29 MIL/uL (4.0-5.2); WHITE BLOOD COUNT (AUTO) 6.6 K/uL (4.3-11.0)
[2019-05-01 00:08] LABS: CALCIUM, SERUM 8.9 mg/dL (8.5-10.1); CARBON DIOXIDE 30 mmol/L (21-32); CHLORIDE 98 mmol/L (98-107); CREATININE 1.5 mg/dL (0.6-1.3); GLUCOSE 153 mg/dL (74-106); POTASSIUM 4.4 mmol/L (3.5-5.1); SODIUM SERUM 135 mmol/L (136-145); UREA NITROGEN, BLOOD 43 mg/dL (7-18)
--- NOTE | 2019-05-01 00:18 | NUR ---
PER KB, S/P FALL IN THE RESTROOM, "BUMPED HEAD AGAINST SHOWER DOOR, AND HAS BEEN WEEK AND SLUGGISH EVER SINCE" Addendum: 05/01/19 at 0200 by JESUS WRONG PT
[2019-05-01 00:20] LABS: B-TYPE NATRIURETIC PEPTIDE 790 PG/ML (0-125)
[2019-05-01] MEDS ORDERED: AZITHROMYCIN 250 MG TABLET PO ONE (01:30)
[2019-05-01] MEDS ORDERED: predniSONE 20 MG TABLET PO ONE (01:30)
[2019-05-01] MEDS ORDERED: ALBUTEROL FS 2.5 MG/0.5 ML VIAL.NEB NEB ONE (01:30)
[2019-05-01] MEDS ORDERED: AZITHROMYCIN 250 MG TABLET ONE (01:33)
[2019-05-01] MEDS ORDERED: predniSONE 20 MG TABLET ONE (01:33)
[2019-05-01] MEDS ORDERED: ALBUTEROL FS 2.5 MG/3 ML VIAL.NEB ONE (01:45)
--- NOTE | 2019-05-01 02:01 | NUR ---
[facility] CALLED FOR TRANSPORT. ETA 45-1 HR. TRIP # [id number]
--- NOTE | 2019-05-01 02:19 | NUR ---
CALLED [facility]T [facility]YVA FOR REPORT, WILL WAIT FOR PT
--- NOTE | 2019-05-01 02:43 | NUR ---
AMBULANCE HERE FOR LINE CREWMAN TAKING PT BACK TO [facility]
[2019-05-01 03:55] VITALS: BP 112/71
== END 2019-05-01 03:55 | disposition home or self-care (01) ==
LOC: ER 23:01
DX: J44.1 Chronic obstructive pulmonary disease with (acute) exacerbation (principal); F03.90 Unspecified dementia, unspecified severity, without behavioral disturbance, psychotic disturbance, mood disturbance, and anxiety; I10 Essential (primary) hypertension; E11.9 Type 2 diabetes mellitus without complications; F17.210 Nicotine dependence, cigarettes, uncomplicated; Z88.2 Allergy status to sulfonamides; Z79.899 Other long term (current) drug therapy
CPT/HCPCS: 36415; 71045; 80048; 83880; 84484; 85025; 85730; 93005; 94640; 99284; 99406; J7512

== ENCOUNTER 2019-05-16 02:43 | Emergency (ER) | payer MEDICARE, OTHER ==
[~2019-05-16] VITALS: Ht 179.1 cm; Wt 81.6 kg
[~2019-05-16 02:43] MED LIST changes: +MELA3TAB PO; -MELA3TAB63 PO
--- NOTE | 2019-05-16 02:48 | NUR ---
PT BIB EMS C/O "SICK TO MY STOMACH AFTER EATING SPICY FOOD". PT C/O NAUSEA, ABDOMINAL PAIN. PT AOX4. NAD NOTED. RESP EVEN AND UNLABORED. PT ON MONITOR IN BED 2. WILL CONTINUE TO MONITOR.
[2019-05-16] MEDS ORDERED: ONDANSETRON HCL/PF 4 MG/2 ML VIAL IVP ONE (03:00)
[2019-05-16] MEDS ORDERED: ONDANSETRON HCL/PF 4 MG/2 ML VIAL ONE (03:08)
[2019-05-16 03:44] LABS: BASOPHILS % (AUTO) 0.5 % (0.0-2.0); EOSINOPHILS % (AUTO) 2.6 % (0.0-6.0); HEMATOCRIT 40 % (33-45); HEMOGLOBIN 13.4 g/dL (11.5-14.8); LYMPHOCYTES # (AUTO) 1.8 /CMM (0.8-4.8); LYMPHOCYTES % (AUTO) 35.4 % (20.0-44.0); MEAN CORPUSCULAR HGB CONC 33 g/dl (31.0-36.0); MEAN CORPUSCULAR VOLUME 100 fL (82-100); MONOCYTES # (AUTO) 0.4 /CMM (0.1-1.30); NEUTROPHILS # (AUTO) 2.7 /CMM (1.8-8.9); NEUTROPHILS % (AUTO) 53.5 % (43.0-81.0); PLATELET COUNT (AUTO) 127 /CMM (150-450); RED BLOOD CELL COUNT(AUTO) 4.01 MIL/uL (4.0-5.2)
--- NOTE | 2019-05-16 03:45 | NUR ---
[id number] INITIATED. UNABLE TO DRAW BLOOD.
[2019-05-16 03:49] LABS: CALCIUM, SERUM 8.1 mg/dL (8.5-10.1); CARBON DIOXIDE 32 mmol/L (21-32); CHLORIDE 100 mmol/L (98-107); CREATININE 0.7 mg/dL (0.6-1.3); GLUCOSE 144 mg/dL (74-106); POTASSIUM 3.7 mmol/L (3.5-5.1); SODIUM SERUM 135 mmol/L (136-145); UREA NITROGEN, BLOOD 20 mg/dL (7-18)
[2019-05-16 03:55] LABS: ALANINE AMINOTRANSFERASE 295 U/L (12-78); ALBUMIN 2.8 g/dL (3.4-5.0); ALKALINE PHOSPHATASE 121 U/L (46-116); ASPARTATE AMINOTRANSFERASE 227 U/L (15-37); BILIRUBIN,DIRECT 0.1 mg/dL (0.0-0.2); BILIRUBIN,TOTAL 0.3 mg/dL (0.2-1.0); LIPASE 107 U/L (73-393); TOTAL PROTEIN, SERUM 7.2 g/dL (6.4-8.2)
--- NOTE | 2019-05-16 04:14 | NUR ---
RAC20G DONE BY WITH U/S
--- NOTE | 2019-05-16 04:26 | NUR ---
PT TAKEN TO RADIOLOGY VIA [facility]
[2019-05-16] MEDS ORDERED: IOHEXOL-300 100 ML VIAL IV ONE (04:28)
--- NOTE | 2019-05-16 04:39 | NUR ---
PT BACK FROM RADIOLOGY. PENDING CT RESULT.
[2019-05-16] MEDS ORDERED: MAG HYDROX/AL HYDROX/SIMETH 30 ML UDC ONE (04:52)
[2019-05-16] MEDS ORDERED: MAG HYDROX/AL HYDROX/SIMETH 30 ML UDC PO ONE (05:00)
--- NOTE | 2019-05-16 05:44 | NUR ---
CALLED [facility] FOR TRANSPORTATION. ETA [phone] TRIP #[phone]
[2019-05-16] MEDS ORDERED: CLONIDINE HCL 0.1 MG TABLET ONE (07:16)
[2019-05-16] MEDS ORDERED: CLONIDINE HCL 0.1 MG TABLET PO ONE (07:30)
[2019-05-16] MEDS ORDERED: ISOSORBIDE DINITRATE (10MG) 10 MG TABLET PO ONE (08:00)
[2019-05-16] MEDS ORDERED: ISOSORBIDE DINITRATE (10MG) 10 MG TABLET PO SCH (08:00)
[2019-05-16 08:22] VITALS: BP 155/95
--- NOTE | 2019-05-16 08:23 | NUR ---
Patient discharged back to SNF in stable condition. Written and verbal after care instructions given. Patient verbalizes understanding of instruction.
[2019-05-16] MEDS ORDERED: LISINOPRIL (10MG) 10 MG TABLET PO SCH (09:00)
== END 2019-05-16 08:22 ==
LOC: ER 02:44
DX: R11.0 Nausea (principal); R74.8 Abnormal levels of other serum enzymes; F03.90 Unspecified dementia, unspecified severity, without behavioral disturbance, psychotic disturbance, mood disturbance, and anxiety; I10 Essential (primary) hypertension; J44.9 Chronic obstructive pulmonary disease, unspecified; E11.9 Type 2 diabetes mellitus without complications; F17.200 Nicotine dependence, unspecified, uncomplicated; Z88.2 Allergy status to sulfonamides; Z79.899 Other long term (current) drug therapy; Z79.82 Long term (current) use of aspirin
CPT/HCPCS: 36415; 74177; 80048; 80076; 83690; 84484; 85025; 96374; 99285; 99406; J2405; Q9967